=== PATIENT | male | born 1955 | race Caucasian/White ===

== ENCOUNTER 2022-12-12 20:39 | Emergency (ER) | payer BC ==
[2022-12-12 20:50] VITALS: TEMP 99.3
[2022-12-12 21:31] LABS: BASO % 0.6 % (0.0-2.0); EOS % 1.1 % (0.0-4.0); GRAN # 2.4 K/mm3 (1.4-6.5); GRAN % 66.1 % (42.2-75.2); HEMOGLOBIN 12.4 g/dl (13.5-18.0); LYMPH # 0.7 K/mm3 (1.2-3.4); LYMPH % 20.3 % (20.0-51.0); MEAN CELL VOLUME 87 fl (80.0-100.0); MEAN CORPUSCULAR HEMOGLOBIN 28 pg (27-31); MEAN CORPUSCULAR HGB CONC 33 g/dl (33.0-37.0); MEAN PLATELET VOLUME 10.5 fl (7.4-10.4); MONO # 0.4 K/mm3 (0.1-0.6); MONO % 11.1 % (1.7-9.3); PLATELET COUNT 158 K/mm3 (130-400); RED BLOOD COUNT 4.36 M/mm3 (4.20-5.60); REDCELL DISTRIBUTION WIDTH-CV 13.2 % (11.5-14.5)
[2022-12-12 21:43] LABS: PROTHROMBIN TIME 11.5 SECONDS (9.7-12.8)
[2022-12-12 21:53] LABS: BILIRUBIN,TOTAL 0.4 mg/dL (0.2-1.2); CALCIUM 8.8 mg/dL (8.4-10.2); CREATININE, serum 0.95 mg/dL (0.72-1.25); POTASSIUM 3.6 mmol/L (3.5-4.5)
[2022-12-12 22:00] LABS: TROPONIN-I 0.012 ng/mL (0.00-0.033)
[2022-12-12 23:26] VITALS: BP 144/78; PULSE 76
== END 2022-12-12 23:26 | disposition home or self-care (01) ==
LOC: COL.ER 20:39
PROVIDERS: Emergency Medicine
DX: I10 Essential (primary) hypertension (principal); D72.819 Decreased white blood cell count, unspecified; Z79.899 Other long term (current) drug therapy; Z28.310 Unvaccinated for COVID-19